=== PATIENT | male | born 1930 | race Caucasian/White ===

== ENCOUNTER 2016-11-18 10:25 | Emergency (ER) | payer MEDICARE, OTHER ==
[2016-11-18 10:59] LABS: ABSOLUTE NEUTROPHIL COUNT 5.8 K/mm3 (1.8-7.7); BASO # 0.1 K/mm3 (0.0-0.2); BASO % 0.6 % (0.2-1.0); EOS # 0.4 (0.0-0.5); EOS % 4.5 % (0.9-2.9); HEMATOCRIT 42.2 % (32.0-52.0); HEMOGLOBIN 13.3 gm/l (14.0-18.0); IMM NEUT% 0.4 % (0-1); LYMPH # 1.4 (1.0-4.8); LYMPH % 16.6 % (15-45); MEAN CORPUSCULAR HEMOGLOBIN 28.4 pg (27.0-31.0); MEAN CORPUSCULAR HGB CONC 31.5 g/dl (33.0-37.0); MEAN PLATELET VOLUME 10.1 fl (7.4-10.4); MONO # 0.9 (0.0-0.8); MONO % 10.1 % (4-12); NEUT % 67.8 % (43-75); PLATELET COUNT 275 K/mm3 (130-400); RED CELL DISTRIBUTION WIDTH 14.4 % (11.5-14.5)
[2016-11-18 11:09] LABS: CALCIUM 9.8 mg/dL (8.6-10.3)
--- NOTE | 2016-11-18 11:24 | RAD ---
CHEST - 2 VIEWS COMPARISON: Chest and left ribs 10/31/2016 HISTORY: Left-sided chest pain. FINDINGS: Views: Frontal and lateral chest Lungs: Bilateral calcifications from pleural plaques. No acute finding. Heart and vessels: Prosthetic aortic valve. No cardiomegaly. Atherosclerosis of the aorta. No change. Trachea and bronchi: Normal Mediastinum and carlos: Normal Costophrenic sulci: Normal Chest wall and bones: Thoracic hyperkyphosis and moderate spondylosis. Sternotomy wires. Upper abdomen: Partially imaged stent in the abdominal aorta. IMPRESSION: 1. No acute finding. No change since the prior study. 2. 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
== END 2016-11-18 12:27 | disposition home or self-care (01) ==
LOC: ED 10:25
DX: M94.0 Chondrocostal junction syndrome [Tietze] (principal); I10 Essential (primary) hypertension; I44.0 Atrioventricular block, first degree; I48.91 Unspecified atrial fibrillation; Z51.81 Encounter for therapeutic drug level monitoring; Z79.01 Long term (current) use of anticoagulants
CPT/HCPCS: 85025; 80048; 84484; 71020; 99283 ×2; 85610; 36416; 93005; G0463